=== PATIENT | male | born 1960 | race Caucasian/White ===

== ENCOUNTER → 2017-10-15 | Outpatient (CLI) | payer OTHER ==
[~2017-10-15] MED LIST: ALPRAZOLAM0.5 M3 PO; ASPIR-LOW81 MG PO; ATENOLOL50 MG PO; ATORVASTATIN CA80 MG PO; BISOPROLOL FUMA1 TA3 PO; BISOPROLOL/HCTZ1 TA3 PO; CLOPIDOGREL75 MG PO; FUROSEMIDE 20MG20 MG PO; HYDRALAZINE HCL25 M1 PO; ISOSORBIDE MONO30 MG PO; LISINOPRIL10 MG PO; LOSARTAN POTASS50 MG PO; LYRICA25 MG PO; METHADONE10 MG PO; OXYCODONE AND A1 TA4 PO; PANTOPRAZOLE SO40 MG PO; ULTRAM50 MG PO; XANAX0.5 MG PO
[2017-10-15 12:04] LABS: HEMOGLOBIN 12.3 g/dL (14.1-18.0); LYMPH # 2.1 K/mm3 (0.7-4.5); LYMPH % 22.3 % (10-50)
[2017-10-15 13:15] LABS: BUN 13 mg/dL (7-18); GFR (ESTIMATED) 69 ML/MIN (>60)
== END ==
LOC: LAB 11:45
PROVIDERS: Internal Medicine Adolescent Medicine
DX: M10.9 Gout, unspecified (principal)